=== PATIENT | female | born 1945 | race Caucasian/White ===

== ENCOUNTER → 2016-09-21 | Outpatient (CLI) | payer MEDICARE ==
[~2016-09-21] VITALS: Ht 157.5 cm; Wt 67.4 kg
[~2016-09-21] MED LIST: AMOXICILLIN250 MG PO; ASPIRIN EC81 MG PO; MAGNESIUM500 MG PO; POTASSIUM99 MG PO; PRINIVIL OR ZES10 MG PO; TOPROL XL25 MG PO
--- NOTE | ~2016-09-21 | CATH ---
Cardiac Diagnostic Report Demographics Patient Name MAGUE Ariza Gender Female Date of 1945 Age 71 year(s) Patient Number [id number] Date of Study 09/21/2016 Visit Number [id number] [place] [id number] Ht 157.48 cm Wt 67.4 kg Referring Reese Poole Primary Physician Physician Performing Efstratiou Secondary Physician Physician Shaquille Borden MD Diagnostic Efstratiou Assisting Physician Physician Shaquille Borden MD Interventional Physician Client Account Manager Physician Findings and Conclusions Diagnostic Findings and Conclusion No angiographic coronary artery disease. LAD myocardial bridge. Borderline tachycardia. Diagnostic Recommendations Add beta blue. Procedure Description The patient was brought to the diagnostic cardiac catheterization-EP laboratory in the fasting, non-sedated state. Informed consent was obtained in the written and verbal form after the risks and benefits were explained. The patient had no further questions and agreed to proceed. The planned puncture-incision site(s) were shaved and prepped with ChloraPrep and draped in the usual sterile manner. Conscious sedation and supplemental oxygen were delivered by a registered nurse under physician guidance. Surface ECG rhythm, blood pressure measurement, and pulse oximetry were monitored throughout the procedure. Arterial access. The access site was infiltrated with lidocaine. The vessel was entered with the Seldinger technique. A sheath was advanced into the vessel and used for catheter placement. Selective left coronary angiography. A catheter was advanced into the left coronary vessel ostium under Fluoroscopic guidance. Contrast was injected by hand. Images were obtained in multiple projections. Selective right coronary angiography. A catheter was advanced into the right coronary vessel ostium under fluoroscopic guidance. Contrast was injected by hand. Images were obtained in multiple projections. Arterial artery hemostasis was achieved. The patient was transferred to a [facility] via cart accompanied by a nurse. The patient left the laboratory in stable condition. Diagnostic Cath Status: Elective Procedure Procedure Type Diagnostic procedure:Angiography:, Coronary Angios Indications: Angina, Shortness of breath and Abnormal Stress Test. The procedure was explained in detail to the patient. Risks, complications and alternative treatments were reviewed. Written consent was obtained. Medications Reviewed with Patient prior to Procedure. Angiographic Findings Dominance: Left Cardiac Arteries and Lesion Findings LMCA: No significant stenosis. LAD: Mid LAD myocardial bridge. Diag has no significant stenosis. LCx: No significant stenosis in LCx or OM. RCA: Patent. Procedure Data Procedure Date Date: 09/21/2016Start: 08:12 AMEnd: 08:31 AM Entry Locations - Antegrade Percutaneous access was performed through the Right Radial artery (Primary location). A 6 Fr sheath was inserted. Hemostasis was successfully obtained using Mechanical Compression. Closure Comments: 12 ml of air in R. Band by Reynaldo Reyna. Procedure Medications Order and Administration + + +-------+-------+ !Time !Medication !Dosage !Route ! + + +-------+-------+ !09/21/2016 !Versed !1 mg !I.V. ! !08:08 AM ! ! ! ! + + +-------+-------+ !09/21/2016 !PAE Radial Cocktail: Heparin 5000 units, ! !I.A. ! !08:17 AM !Nitroglycerin 200mcg, Verapamil 3 mg ! ! ! ! !(ACC_3) ! ! ! + + +-------+-------+ Devices Used - A6 Fr. BS JR 4 Diag. Catheterwas used for:Right coronary angiography. - A6 Fr. BS JL 3.5 Diag. Catheterwas used for:Left coronary angiography. Contrast Material - Isovue 94936 ml Fluoroscopy Time: Diagnostic: 1:42 minutes. Total: 1:42 minutes. Fluoroscopy Dose: Diagnostic: 323 mGy. Total: 323 mGy. Estimated Blood Loss: 7 ml. Medical History Allergies - Penicillin. - Other:(diclofenac). - Morphine. Risk Factors The patient risk factors include:treated hypercholesterolemia, treated hypertension, last creatinine: 0.9 mg/dl, creatinine clearance: 62.77 ml/min and dyslipidemia. Admission Data Admission Date: 09/21/2016 Admission Time: 05:56 AM Insurance Payors: Medicare. Admission Medications + +------+------+ + + + + !Medication !Dosage!Times !Last !Last !Administered !Comments ! ! ! !Per !Delivery !Delivery ! ! ! ! ! !Day !Date !Time ! ! ! + +------+------+ + + + + !Aspirin ! ! ! ! ! ! ! !(any) ! ! ! ! ! ! ! + +------+------+ + + + + !JAKE ! ! ! ! ! ! ! !Inhibitor ! ! ! ! ! ! ! !(any) ! ! ! ! ! ! ! + +------+------+ + + + + Clinical Evaluation Leading to Procedure - The patient's CAD presentation was assessed as: Stable angina. - The patient's anginal syndrome during the past two weeks was assessed as: Class II according to the [place] [employer] Classification System (CCS). Snapshots Hemodynamics Condition: Rest O2 Consumption: Estimated: 159.72Heart Rate: 77 bpm Pressures (mmHg) +-----+ + !Site !Pressure ! +-----+ + !AO !110/68 (90) ! +-----+ + Shunts Oxygen Values O2 Capacity 172.72 O2 Consumption 159.72 Signatures dtt: Nahum Jiménez dtd: 09/21/16811 Physician Self Edit
[2016-09-21 06:54] LABS: BASOPHIL % 0.9 %; EOSINOPHIL # 0.2 K/uL (0.0-0.5); EOSINOPHIL % 4.2 %; HEMATOCRIT 39.5 % (33.0-46.0); HEMOGLOBIN 12.7 g/dL (10.0-15.0); IMMATURE GRANULOCYTE % 0.2 %; LYMPHOCYTE # 1.9 K/uL (0.8-4.0); LYMPHOCYTE % 42.7 %; MCH 29.1 pg (27.0-34.0); MCHC 32.2 gm/dL (32.0-36.5); MCV 90.6 fl (83.0-98.0); MONOCYTE # 0.3 K/uL (0.0-1.0); MONOCYTE % 7.9 %; MPV 9.8 fl (9.4-12.4); NEUTROPHIL # (ANC) 1.9 K/uL (1.8-7.8); NEUTROPHIL % 44.1 %; NRBC % 0 /100WBC (0-0.00); PLATELET COUNT 214 K/uL (150-450); RBC 4.36 M/uL (3.50-5.50); WBC 4.3 K/uL (4.0-11.0)
[2016-09-21 07:01] LABS: INR - (THERAPEUTIC) 1.1 (0.9-1.1); PROTIME 11.1 SECONDS (9.6-11.1); PTT 25 SECONDS (25-32)
[2016-09-21 07:08] LABS: ALBUMIN 3.4 gm/dL (3.5-5.0); ALK PHOS 77 IU/L (33-138); ALT 20 IU/L (12-78); ANION GAP 11.2 (10.0-19.0); AST 20 IU/L (10-40); BLOOD UREA NITROGEN 27 mg/dL (6-24); CALCIUM 8.9 mg/dL (8.5-10.5); CHLORIDE 109 mMol/L (96-110); CO2 26 mMol/L (22-32); CREATININE 0.9 mg/dL (0.5-1.1); POTASSIUM 4.2 mMol/L (3.7-5.1); SODIUM 142 mMol/L (135-145); TOTAL BILIRUBIN 0.2 mg/dL (0.0-1.5); TOTAL PROTEIN 6.7 g/dL (6.0-8.4)
[2016-09-21 07:09] LABS: ESTIMATED GFR (MDRD EQUATION) > 60
== END | disposition disaster alternative care site (69) ==
LOC: GPOC 09-17 10:00 → GCAT 05:56 → GPOC 06:00
PROVIDERS: Internal Medicine Cardiovascular Disease
PROC: B2111ZZ Fluoroscopy of Multiple Coronary Arteries using Low Osmolar Contrast (ICD-10-PCS; principal; 2016-09-21)
DX: I20.9 Angina pectoris, unspecified (principal); R94.39 Abnormal result of other cardiovascular function study; Q24.5 Malformation of coronary vessels; I10 Essential (primary) hypertension; R06.02 Shortness of breath; E78.00 Pure hypercholesterolemia, unspecified; F41.0 Panic disorder [episodic paroxysmal anxiety]; Z79.82 Long term (current) use of aspirin; Z79.899 Other long term (current) drug therapy; Z82.49 Family history of ischemic heart disease and other diseases of the circulatory system
CPT/HCPCS: C1894; J1644; J2001; J2250; J2930; J3010; J7030